=== PATIENT | male | born 1940 | race Caucasian/White ===

== ENCOUNTER 2016-05-12 06:22 | Day surgery (SDC) | payer MEDICARE, OTHER ==
[2016-05-11 14:41] VITALS: BP 149/102
[2016-05-11 15:17] LABS: HEMOGLOBIN 15.6 g/dL (13.7-18.0)
[2016-05-11 15:26] LABS: ASPARTATE AMINO TRANSFERASE 27 U/L (15-37); BLOOD UREA NITROGEN 15 mg/dL (7-18)
[~2016-05-12] VITALS: Ht 170.2 cm; Wt 71.8 kg
[~2016-05-12 06:22] MED LIST: ALBUTEROL INH INH; AMOX-291 PO; APIX5TAB PO; ASCO1TAB15 PO; CHOL200024 PO; CYAN2500 PO; DILT120C9 PO; HYDR-3138 PO; MULT-516 PO; OMEG1CAP12 PO
[2016-05-12] MEDS ORDERED: SODIUM CHLORIDE 0.9% 1,000 ML IV SCH (06:35)
[2016-05-12] MEDS ORDERED: MIDAZOLAM 1 MG/ML, 5ML ONE (07:20)
[2016-05-12] MEDS ORDERED: HEPARIN 1,000 UNITS/ML, 10ML ONE (07:20)
[2016-05-12] MEDS ORDERED: BIVALIRUDIN 250 MG ONE (07:20)
[2016-05-12] MEDS ORDERED: FENTANYL PF 100 MCG/2ML ONE (07:20)
[2016-05-12] MEDS ORDERED: VERAPAMIL 2.5 MG/ML, 2ML ONE (07:20)
[2016-05-12] MEDS ORDERED: LIDOCAINE 2%, 20ML ONE (07:21)
== END 2016-05-12 12:01 | disposition home or self-care (01) ==
LOC: CACL 06:22
PROVIDERS: ATTEND Internal Medicine Cardiovascular Disease
DX: I48.91 Unspecified atrial fibrillation (principal); I35.1 Nonrheumatic aortic (valve) insufficiency; I34.0 Nonrheumatic mitral (valve) insufficiency; I36.1 Nonrheumatic tricuspid (valve) insufficiency; I37.1 Nonrheumatic pulmonary valve insufficiency; J45.909 Unspecified asthma, uncomplicated; I48.92 Unspecified atrial flutter; E78.2 Mixed hyperlipidemia; I11.9 Hypertensive heart disease without heart failure
CPT/HCPCS: 36415; 71020; 80053; 85025; 85610; 85730; 93306; 93458; 93880; C1894; J1644; J2250; J3010; J3490; Q9967; J0583

== ENCOUNTER → 2016-05-19 | Outpatient (CLI) | payer MEDICARE ==
[~2016-05-19] MED LIST changes: +OMNIPAQUE 350 MG/ML, 150 ML BOTTLE ONE
== END | disposition home or self-care (01) ==
LOC: CFH 10:20
PROVIDERS: ATTEND Internal Medicine Cardiovascular Disease
DX: I48.91 Unspecified atrial fibrillation (principal)
CPT/HCPCS: 71020; 75572; Q9967

== ENCOUNTER → 2016-06-05 | Outpatient (CLI) | payer MEDICARE ==
[~2016-06-05] MED LIST changes: -OMNIPAQUE 350 MG/ML, 150 ML BOTTLE ONE
[2016-06-05 16:08] LABS: HEMOGLOBIN 11.7 g/dL (13.7-18.0)
[2016-06-05 16:13] LABS: BLOOD UREA NITROGEN 23 mg/dL (7-18)
== END | disposition home or self-care (01) ==
LOC: CFH 14:21
PROVIDERS: ATTEND Thoracic Surgery (Cardiothoracic Vascular Surgery)
DX: I48.1 Persistent atrial fibrillation (principal); J90 Pleural effusion, not elsewhere classified; J98.11 Atelectasis; E87.8 Other disorders of electrolyte and fluid balance, not elsewhere classified; D64.9 Anemia, unspecified
CPT/HCPCS: 36415; 71020; 80048; 85025

== ENCOUNTER 2016-07-27 06:25 | Observation (INO) | payer MEDICARE ==
[2016-07-26 11:26] LABS: BLOOD UREA NITROGEN 24 mg/dL (7-18)
[~2016-07-27] VITALS: Ht 170.2 cm; Wt 75.1 kg
[2016-07-27] MEDS ORDERED: SODIUM CHLORIDE 0.9% 1,000 ML IV SCH (06:53)
[2016-07-27] MEDS ORDERED: AMIO200T42 PO (06:58)
[2016-07-27] MEDS ORDERED: METO25TA35 PO (06:58)
[2016-07-27 06:59] VITALS: BP 158/89
[2016-07-27] MEDS ORDERED: MIDAZOLAM 1 MG/ML, 5ML ONE (07:45)
[2016-07-27] MEDS ORDERED: FENTANYL PF 250 MCG/5ML ONE (07:45)
[2016-07-27] MEDS ORDERED: ROCURONIUM 10 MG/ML ONE (08:03)
[2016-07-27] MEDS ORDERED: PROPOFOL 10 MG/ML, 20ML ONE (08:03)
[2016-07-27] MEDS ORDERED: SUCCINYLCHOLINE 20 MG/ML, 10ML ONE (08:03)
[2016-07-27] MEDS ORDERED: DEXAMETHASONE 4 MG/ML, 1ML ONE (08:03)
[2016-07-27] MEDS ORDERED: EPHEDRINE 50 MG/ML, 1ML ONE (08:03)
[2016-07-27] MEDS ORDERED: ONDANSETRON 2MG/ML, 2ML ONE (08:03)
[2016-07-27] MEDS ORDERED: LIDOCAINE 2%, 20ML ONE (08:26)
[2016-07-27] MEDS ORDERED: HEPARIN 1,000 UNITS/ML, 10ML ONE (08:26)
[2016-07-27] MEDS ORDERED: PROTAMINE SULFATE 10 MG/ML, 5ML ONE (08:26)
[2016-07-27] MEDS ORDERED: HYDROcodone/APAP 5/325 TABLET PO PRN (10:00)
[2016-07-27] MEDS ORDERED: ACETAMINOPHEN 325 MG TABLET PO PRN ×2 (10:00→10:30)
[2016-07-27] MEDS ORDERED: ONDANSETRON 2MG/ML, 2ML IVPush PRN (10:30)
[2016-07-27] MEDS ORDERED: MIDAZOLAM 1 MG/ML, 2ML IV PRN (10:30)
[2016-07-27] MEDS ORDERED: HYDROmorphone 1 MG/ML, 1ML IV PRN (10:30)
[2016-07-27] MEDS ORDERED: LABETALOL 5MG/ML, 20ML IV PRN (10:30)
[2016-07-27] MEDS ORDERED: OXYcodone 5 MG/5 ML ORAL.SOL UDC PO PRN (10:30)
[2016-07-27] MEDS ORDERED: ALBUTEROL SULFATE 2.5 MG/3 ML NPPB PRN ×2 (10:30→13:00)
[2016-07-27] MEDS ORDERED: hydrALAzine 20 MG/ML, 1ML IV PRN (10:30)
[2016-07-27] MEDS ORDERED: PROMETHAZINE 25 MG/ML, 1ML IV PRN (10:30)
[2016-07-27] MEDS ORDERED: MEPERIDINE/PF 25MG/0.5ML IVPush PRN (10:30)
[2016-07-27] MEDS ORDERED: FENTANYL PF 100 MCG/2ML IV PRN (10:30)
[2016-07-27] MEDS ORDERED: OXYcodone 5 MG/5 ML ORAL.SOL UDC ONE (10:54)
[2016-07-27] MEDS ORDERED: ACETAMINOPHEN 650 MG/20.3 ML UDC ONE (10:54)
[2016-07-27] MEDS: PLEASE ENTER ALLERGIES MC SCH ×4 (12:43→21:00)
[2016-07-27 14:49] VITALS: BP 144/70
[2016-07-27 19:09] VITALS: BP 116/65
[2016-07-27] MEDS: METOPROLOL TARTRATE 25 MG TABLET PO SCH (21:00)
[2016-07-27] MEDS ORDERED: ZOLPIDEM 5MG TABLET PO PRN (21:00)
[2016-07-27] MEDS: AMOXICILLIN 500 MG CAPSULE PO SCH (21:19)
[2016-07-27] MEDS: APIXABAN 5 MG TABLET PO SCH (21:19)
[2016-07-28 01:57] VITALS: BP 120/52
[2016-07-28] MEDS: PLEASE ENTER ALLERGIES MC SCH ×2 (04:07)
[2016-07-28 07:08] VITALS: BP 139/71
[2016-07-28] MEDS ORDERED: OMEGA-3/FISH OIL CAPSULE PO SCH (09:00)
[2016-07-28] MEDS: METOPROLOL TARTRATE 25 MG TABLET PO SCH (09:00)
[2016-07-28] MEDS ORDERED: BIOTIN PO SCH (09:00)
[2016-07-28] MEDS ORDERED: CYANOCOBALAMIN 1,000 MCG TABLET PO SCH (09:00)
[2016-07-28] MEDS ORDERED: VITAMIN E PO SCH (09:00)
[2016-07-28] MEDS ORDERED: CHOLECALCIFEROL 1,000 UNIT TABLET PO SCH (09:00)
[2016-07-28] MEDS ORDERED: ASCORBIC ACID PO SCH (09:00)
[2016-07-28] MEDS ORDERED: AMIODARONE 200 MG TABLET PO SCH (09:00)
[2016-07-28] MEDS ORDERED: MULTIVITAMIN 1 TABLET PO SCH (09:00)
[2016-07-28 09:41] VITALS: BP 69/71
[2016-07-28] MEDS: APIXABAN 5 MG TABLET PO SCH (09:47)
[2016-07-28] MEDS: AMOXICILLIN 500 MG CAPSULE PO SCH (09:47)
== END 2016-07-28 12:40 | disposition home or self-care (01) ==
LOC: CACL 06:25 → ORIP 09:47 → 5SO 12:19 → DCLOUNGE 07-28 12:03
PROVIDERS: ADMIT Internal Medicine Cardiovascular Disease; ATTEND Internal Medicine Cardiovascular Disease
DX: I48.91 Unspecified atrial fibrillation (principal); I48.92 Unspecified atrial flutter
CPT/HCPCS: 36415; 71020; 80048; 85025; 85347; 85610; 85730; 93005; 93308; 93321; 93325; 93613; 93655; 93656; 93662; C1730; C1731; C1732; C1759; C1766; C1893; C1894; G0378; J0330; J1100; J1644; J2250; J2405; J2704; J2720; J3010; J3490

== ENCOUNTER 2016-08-16 15:21 | Emergency (ER) | payer MEDICARE ==
[~2016-08-16] VITALS: Ht 170.2 cm; Wt 67.0 kg
[~2016-08-16 15:21] MED LIST changes: +AMIO200T42 PO; +METO25TA35 PO; -OMEG1CAP12 PO; +OMEG1CAP23 PO
[2016-08-16] MEDS ORDERED: TADA5TAB2 PO (15:40)
[2016-08-16] MEDS ORDERED: LORA10TA3 PO (15:40)
[2016-08-16] MEDS ORDERED: CHOL100011 PO (15:40)
[2016-08-16] MEDS ORDERED: CYAN2500 PO (15:40)
[2016-08-16] MEDS ORDERED: DICL1TAB49 PO (15:40)
[2016-08-16] MEDS ORDERED: DILT120C80 PO (15:40)
[2016-08-16 16:23] LABS: BLOOD UREA NITROGEN 15 mg/dL (7-18)
[2016-08-16 16:28] LABS: ASPARTATE AMINO TRANSFERASE 22 U/L (15-37)
[2016-08-16 16:30] LABS: IS PT STATUS REG ER OR PRE ER? YES
[2016-08-16 17:20] VITALS: BP 173/75
== END 2016-08-16 17:23 | disposition home or self-care (01) ==
LOC: ED 16:49
DX: R60.0 Localized edema (principal); I10 Essential (primary) hypertension; I48.91 Unspecified atrial fibrillation
CPT/HCPCS: 36415; 71010; 80053; 83880; 84484; 85025; 85379; 85610; 93005; 93970; 99285

== ENCOUNTER 2018-12-11 09:40 | Day surgery (SDC) | payer MEDICARE ==
[~2018-12-11] VITALS: Ht 170.2 cm; Wt 74.0 kg
[~2018-12-11 09:40] MED LIST changes: +ASCO10004 PO; +CHOL100011 PO; +DICL1TAB49 PO; +DILT120C80 PO; +FISH OIL PO; -HYDR-3138 PO; +HYDR-3237 PO; +LORA-247 PO; +TADA5TAB2 PO; +TRAM50TA2 PO
[2018-12-11 10:16] VITALS: BP 164/85
[2018-12-11] MEDS ORDERED: GABAPENTIN 300 MG CAPSULE ONE (10:27)
[2018-12-11] MEDS ORDERED: ACETAMINOPHEN 500 MG TABLET ONE (10:27)
[2018-12-11] MEDS ORDERED: CEFAZOLIN 1,000 MG ONE (10:55)
[2018-12-11] MEDS ORDERED: ROCURONIUM 10MG/ML,5ML ONE (10:55)
[2018-12-11] MEDS ORDERED: GLYCOPYRROLATE 0.2MG/1ML, 5ML ONE (10:55)
[2018-12-11] MEDS ORDERED: NEOSTIGMINE 1 MG/ML, 10ML ONE (10:55)
[2018-12-11] MEDS ORDERED: FENTANYL PF 250 MCG/5ML ONE (10:55)
[2018-12-11] MEDS ORDERED: PROPOFOL 10 MG/ML, 20ML ONE (10:55)
[2018-12-11] MEDS ORDERED: GABAPENTIN 300 MG CAPSULE PO ONE (11:00)
[2018-12-11] MEDS ORDERED: ACETAMINOPHEN 500 MG TABLET PO ONE (11:00)
[2018-12-11] MEDS ORDERED: LACTATED RINGERS 1,000 ML IV SCH (11:00)
[2018-12-11] MEDS ORDERED: BUPIVACAINE/PF 0.5% ONE (12:34)
[2018-12-11] MEDS ORDERED: hydrALAzine 20 MG/ML, 1ML IV PRN (13:00)
[2018-12-11] MEDS ORDERED: OXYcodone 5 MG/5 ML ORAL.SOL UDC PO PRN (13:00)
[2018-12-11] MEDS ORDERED: MEPERIDINE/PF 25MG/ML,1ML IVPush PRN (13:00)
[2018-12-11] MEDS ORDERED: ONDANSETRON 2MG/ML, 2ML IV PRN (13:00)
[2018-12-11] MEDS ORDERED: MORPHINE SULFATE 4 MG/ML, 1ML IVPush PRN (13:00)
[2018-12-11] MEDS ORDERED: LABETALOL 5MG/ML, 20ML IV PRN (13:00)
[2018-12-11] MEDS ORDERED: HYDROmorphone 2 MG/ML, 1ML IVPush PRN (13:00)
[2018-12-11] MEDS ORDERED: OXYcodone 5 MG/5 ML ORAL.SOL UDC ONE (14:27)
[2018-12-11] MEDS ORDERED: FENTANYL PF 100 MCG/2ML ONE ×2 (14:27→14:54)
[2018-12-11] MEDS: FENTANYL PF 100 MCG/2ML IV PRN ×4 (14:34→15:10)
[2018-12-11] MEDS ORDERED: METHOCARBAMOL 1,000 MG in DEXTROSE 5% 100 ML IV ONE (15:00)
== END 2018-12-11 16:40 | disposition home or self-care (01) ==
LOC: OUT 09:40
PROVIDERS: ATTEND Surgery
DX: K40.90 Unilateral inguinal hernia, without obstruction or gangrene, not specified as recurrent (principal); J45.909 Unspecified asthma, uncomplicated; Z72.89 Other problems related to lifestyle; Z79.891 Long term (current) use of opiate analgesic; Z79.899 Other long term (current) drug therapy; Z87.891 Personal history of nicotine dependence; Z98.890 Other specified postprocedural states
CPT/HCPCS: 49650; C1781; J0690; J2704; J2710; J2800; J3010; J7120

== ENCOUNTER → 2019-04-10 | Outpatient (CLI) | payer MEDICARE ==
[~2019-04-10] MED LIST changes: +DILT120C48 PO; -DILT120C9 PO
== END | disposition home or self-care (01) ==
LOC: CFH 14:45
PROVIDERS: ATTEND Nurse Practitioner Family
DX: I08.8 Other rheumatic multiple valve diseases (principal); I71.2 Thoracic aortic aneurysm, without rupture; I48.91 Unspecified atrial fibrillation
CPT/HCPCS: 93306